=== PATIENT | male | born 1965 | race Caucasian/White ===

== ENCOUNTER 2024-10-22 08:13 | Emergency (ER) | payer OTHER ==
[~2024-10-22] VITALS: Ht 172.7 cm; Wt 80.7 kg
[2024-10-22] MEDS ORDERED: HYDROmorphone HCl/Pf 1MG SYR IM ONE (09:20)
[2024-10-22 09:25] VITALS: BP 109/83
== END 2024-10-22 10:40 | disposition home or self-care (01) ==
LOC: ER 08:13
DX: R07.81 Pleurodynia (principal); M54.6 Pain in thoracic spine; Z59.89 Other problems related to housing and economic circumstances
CPT/HCPCS: 71101; 96372; 99283-25; J1171

== ENCOUNTER 2025-04-26 15:02 | Emergency (ER) | payer OTHER ==
[~2025-04-26] VITALS: Ht 167.6 cm; Wt 81.7 kg
[2025-04-26 15:49] LABS: BASOPHILS ABSOLUTE AUTO 0.03 K/mm3 (0.00-0.23); BASOPHILS PERCENT AUTO 0 % (0-2); EOSINOPHILS ABSOLUTE AUTO 0.02 K/mm3 (0.00-0.68); EOSINOPHILS PERCENT AUTO 0 % (0-6); Hematocrit 41.3 % (37.0-53.0); Hemoglobin 14.7 g/dL (13.5-17.5); IMMATURE GRAN ABSOLUTE AUTO 0.07 K/mm3 (0.00-0.10); IMMATURE GRAN PERCENT AUTO 0 % (0-1); LYMPHOCYTES ABSOLUTE AUTO 0.54 K/mm3 (0.84-5.20); LYMPHOCYTES PERCENT AUTO 3 % (21-46); MONOCYTES ABSOLUTE AUTO 0.72 K/mm3 (0.16-1.47); MONOCYTES PERCENT AUTO 5 % (4-13); Mean Corpuscular HGB 30.9 pg (26.0-34.0); Mean Corpuscular HGB Conc 35.6 g/dL (31.5-36.5); Mean Corpuscular Volume 87 fL (80-100); Mean Platelet Volume 8.5 fL (9.1-12.4); NEUTROPHILS ABSOLUTE AUTO 14.51 K/mm3 (1.96-9.15); NEUTROPHILS PERCENT AUTO 91 % (41-73); Platelet Count 266 K/mm3 (150-400); RDW Coefficient Variation 12.1 % (11.7-14.2); RDW Standard Deviation 38.8 fL (35.1-46.3); Red Blood Cell Count 4.75 M/mm3 (4.30-5.90); White Blood Cell Count 15.89 K/mm3 (4.00-11.30)
[2025-04-26 16:28] LABS: Albumin, Blood 4.1 g/dL (3.4-5.0); Albumin/Globulin Ratio 0.9 (0.8-1.8); Bilirubin, Total 1.1 mg/dL (0.1-1.0); Bun/Creatinine Ratio 14.2 (12.0-20.0); Calcium, Blood 9.6 mg/dL (8.5-10.1); Creatinine, Blood 0.63 mg/dL (0.60-1.20); Globulin, Blood 4.6 g/dL (2.2-4.0); Potassium, Blood 4.4 mmol/L (3.5-5.5); Total Protein, Blood 8.7 g/dL (6.4-8.2)
[2025-04-26] MEDS ORDERED: Ondansetron HCl 2 MG / ML 2ML Vial IV ONE (17:35)
[2025-04-26] MEDS ORDERED: Famotidine 10 MG/ML 2ML Vial IV ONE (23:50)
[2025-04-26] MEDS ORDERED: Metoclopramide HCl 5MG / ML 2ML Vial IV ONE (23:50)
[2025-04-26] MEDS ORDERED: DiphenhydrAMINE HCl 50 MG/ML 1ML Vial IV ONE (23:50)
[2025-04-27] MEDS ORDERED: Mag Hydrox/AL Hydrox/Simeth 30 ML UDC PO ONE (00:55)
[2025-04-27] MEDS ORDERED: Lidocaine 2% Viscous Soln 15 ML UDC PO ONE (00:55)
[2025-04-27 03:00] VITALS: BP 116/83
[2025-04-27] MEDS ORDERED: OMEP20ER PO (03:07)
[2025-04-27] MEDS ORDERED: Zofran4 MG PO (03:07)
== END 2025-04-27 03:30 | disposition home or self-care (01) ==
LOC: ER 15:02
PROVIDERS: Emergency Medicine
DX: K29.70 Gastritis, unspecified, without bleeding (principal); K44.9 Diaphragmatic hernia without obstruction or gangrene; Z59.89 Other problems related to housing and economic circumstances
CPT/HCPCS: 71046; 80053; 83690; 84484; 85025; 93005; 93010; 96374; 96375; 99284-25; A9270; J1200; J2405; J2765

== ENCOUNTER 2025-06-16 11:21 | Day surgery (SDC) | payer OTHER ==
[~2025-06-16] VITALS: Ht 162.6 cm; Wt 79.3 kg
[~2025-06-16 11:21] MED LIST: CLON.5 PO; Cyclobenzaprine5 MG PO; DIAZ5 PO; OMEP20ER PO; ONDA4 PO; Percocet 5-3251 EACH PO; SUCR1 PO; Zofran4 MG PO
[2025-06-16 11:55] VITALS: BP 123/80
[2025-06-16] MEDS ORDERED: Midazolam HCl 1MG / ML 2ML Vial ONE (12:26)
--- NOTE | 2025-06-16 12:31 | NUR ---
06/16/25 Jacklyn Beth CONFIRMED AND REVIEWED H&P, MEDCICATIONS, ALLERGIES, MEDICAL HISTORY, RESPIRATORY HISTORY, VITAL SIGNS, 3-LEAD EKG, CONSENTS, AND PHYSICIAN ORDERS. PATIENT CONFIRMS NPO STATUS AND AGREES WITH SCHEDULED PROCEDURE. MONITOR INTACT WITH CONTINUOUS PULSE OXIMETRY, CAPNOGRAPHY, 3-LEAD EKG, INTERMITTENT BP. SUPPLEMENTAL O2 TO BE TITRATED THROUGHOUT PROCEDURE TO MAINTAIN O2 SATURATION ABOVE 90%. PATIENT DETERMINED TO BE ASA APPROPRIATE FOR PROPOFOL SEDATION PRIOR TO START OF PROCEDURE BY DR. HAY.
[2025-06-16] MEDS ORDERED: Benzocaine Oral Spray 0.5ML UD ONE (12:34)
[2025-06-16 13:14] VITALS: BP 106/76
--- NOTE | 2025-06-16 13:24 | NUR ---
Discharge instructions reviewed with patient. Patient verbalizes understanding. Copy given to patient to take home. Patient States Post-Procedure ride home has been arranged WITH F[facility]. Discharged via wheelchair to private car for ride home.
[2025-06-16] MEDS ORDERED: Sucralfate 1000MG / 10ML UD BTL PO SCH (18:00)
== END 2025-06-16 13:48 | disposition home or self-care (01) ==
LOC: ORSCMMR 11:21 → ORD 12:30 → ORSCMMR 13:48
PROVIDERS: Family Medicine
PROC: 0DB98ZX Excision of Duodenum, Via Natural or Artificial Opening Endoscopic, Diagnostic (ICD-10-PCS; principal; 2025-06-16 12:30)
PROC: 0DB78ZX Excision of Stomach, Pylorus, Via Natural or Artificial Opening Endoscopic, Diagnostic (ICD-10-PCS; principal; 2025-06-16 12:30)
PROC: 0DB48ZX Excision of Esophagogastric Junction, Via Natural or Artificial Opening Endoscopic, Diagnostic (ICD-10-PCS; principal; 2025-06-16 12:30)
DX: K92.0 Hematemesis (principal); K31.7 Polyp of stomach and duodenum; K21.9 Gastro-esophageal reflux disease without esophagitis; R13.14 Dysphagia, pharyngoesophageal phase; K29.70 Gastritis, unspecified, without bleeding; K22.10 Ulcer of esophagus without bleeding; Z79.899 Other long term (current) drug therapy; Z87.891 Personal history of nicotine dependence
CPT/HCPCS: 88305; 88312; 88342; A9270; J2250; J2704; J7120